=== PATIENT | female | born 1980 | race Caucasian/White ===

== ENCOUNTER → 2021-02-27 15:27 | Outpatient (REF) | payer OTHER, SELFPAY ==
--- NOTE | 2021-02-27 15:35 | ECG_ITS ---
Test Reason : OPIOD DEPEND, DEPRES Blood Pressure : / mmHG Vent. Rate : 066 BPM Atrial Rate : 066 BPM P-R Int : 138 ms QRS Dur : 090 ms QT Int : 414 ms P-R-T Axes : 051 025 019 degrees QTc Int : 434 ms Normal sinus rhythm Normal ECG When compared with ECG of 07-MAR-2020 13:53, No significant change was found Referred By: Anca Valdes Electronically Signed By:CASSIA GORDON MD
== END ==
LOC: HO.CARD 15:27
PROVIDERS: PCP Internal Medicine; Visit Provider Internal Medicine
DX: F11.20 Opioid dependence, uncomplicated (principal); F33.1 Major depressive disorder, recurrent, moderate; Z79.899 Other long term (current) drug therapy
CPT/HCPCS: 93005